=== PATIENT | female | born 1990 | race Caucasian/White ===

== ENCOUNTER 2025-01-15 18:04 | Emergency (ER) | payer MEDICAID, SELFPAY ==
--- NOTE | 2025-01-15 19:42 | PD.EDSKIN ---
ED Skin Abcess FB-RME/HPI General Chief complaint: Wound/Laceration Stated complaint: Left arm laceration X 5 days Time Seen by Provider: 01/15/25 19:49 Arrival date/time: 01/15/25 18:04 RME / HPI RME / HPI narrative: See [facility] for Dr. Ruvalcaba's HPI Documentation. Related Data Previous Rx's ?Medication ?Instructions ?Recorded amoxicillin 875 mg-potassium 1 tab PO BID #20 tabs 01/15/25 clavulanate 125 mg tablet Allergies Allergy/AdvReac Type Severity Reaction Status Date / Time clindamycin Allergy Verified 01/15/25 18:10 Review of Systems Review of Systems Systems Reviewed: All systems reviewed, normal except as documented Past Medical History Social History SMOKING STATUS: Current every day smoker ED Exam Narrative Physical exam: See [facility] for Dr. Ruvalcaba's Physical Exam Documentation. Course Quality Measures none Orders Category Date Time Status Amoxicillin/Pot Clav 875 [Augmentin 875] Med 01/15/25 19:55 Discontinued 1 tab PO X1 ONE Ibuprofen Tab [Motrin Tab] Med 01/15/25 19:55 Discontinued 800 mg PO X1 ONE Lidocaine 1% Vial 20 ml [Xylocaine 1% 20 ML] Med 01/15/25 19:55 Discontinued 20 ml INFL X1 ONE Vital Signs Vital signs: Vital Signs Temperature 98.3 F 01/15/25 19:46 Pulse Rate 59 L 01/15/25 19:46 Respiratory Rate 16 01/15/25 19:46 Blood Pressure 132/87 H 01/15/25 19:46 Pulse Oximetry (%) 99 01/15/25 19:46 Oxygen Delivery Method Room Air 01/15/25 19:46 PROCEDURES: Abscess I/D Site: upper extremity (forearm) Side (if applicable): left Sedation/analgesia: none Local Anesthetic: lidocaine 1% Amount of anesthesia used (mL): 3 Technique: incised with #11 blade Amount of fluid expressed (mL): 5 Irrigation: Yes Packing used?: none Skin / Abscess / Foreign Body [facility] Narrative MDM Narrative:: This section includes all my notes and documentations, including HPI, PE, and ED course. Chente Ruvalcaba MD HPI: 34 y/o female presents with worsening left forearm mass with redness and swelling and pain x 5 days. No fever or chills. No other complaints. ROS: All negative except as documented in HPI. Physical Exam: General: Alert and oriented. No acute distress when remaining still. Eyes: Conjunctivae and lids clear. ENT: No nasal congestion. Neck: Supple. Lungs: No respiratory distress. Skin: Warm and dry. In the distal volar aspect of the left forearm, there is chestnut sized erythematous fluctuant mass with calor and tenderness. Neuro: Alert and oriented X 3. At this point, diagnoses include: Abscess Treatment here included: Augmentin 875 Motrin 800 mg Incision & Drainage (see procedure note) She felt much better. Recommended outpatient treatment. Based on my best medical judgment, made decision no further evaluation or treatment indicated at this time. Patient understands and agrees to the discharge instructions customized and printed, see below. Discharge Instructions from Dr. Ruvalcaba: ?Your abscess was successfully incised and drained pus. ?Take Augmentin to help kill the germs causing your infection. ?Three times per day, soak in warm water with antibacterial soap and Epsom salt. Try to gently squeeze out more pus before the wound closes. ?After drying as much as possible, apply new dressing. ?See your private doctor of your choice on 01/17/2025 for recheck and further care, to make sure you are healing properly without any complications. There is no one antibiotic that can kill all the germs out there. So the follow-up is extremely important. ?-Seek immediate medical care with fever > 100.4, spreading redness, or with any concerns. Chente Ruvalcaba MD Patient data External records reviewed:: [facility] previous records (Reviewed prior ED records from 06/10/22. Patient was seen for Abdominal pain.) Clinical information provided by:: patient Social determinants that could affect healthcare access:: none Patient has the following chronic illnesses:: None reported How is presenting disease/condition affected by chronic disease/condition?: no chronic disease Evaluation data The following diagnostics were reviewed and interpreted by me:: other (specify) (N/A) Lab and/or radiology exams considered but not ordered:: None Interpretation Summary: None Medications / Prescriptions Medications or Prescriptions considered but not ordered:: None Medication administrations:: Medication Administration History Discontinued Medications Amoxicillin/Clavulanate Potassium (Amoxicillin/Pot Clav 875 Tablet) 1 tab PO X1 ONE Stop: 01/15/25 19:56 Last Admin: 01/15/25 20:08 Dose: 1 tab Documented By: GAB Ibuprofen (Ibuprofen Tab 400 Mg Tablet) 800 mg PO X1 ONE Stop: 01/15/25 19:56 Last Admin: 01/15/25 20:07 Dose: 800 mg Documented By: GAB Lidocaine HCl (Lidocaine Hcl 1% 20 Ml Vial) 20 ml INFL X1 ONE Stop: 01/15/25 19:56 Last Admin: 01/15/25 21:13 Dose: 20 ml Documented By: GAB Comments: ADMINISTERED BY Treatment here included: Augmentin 875 Motrin 800 mg Incision & Drainage (see procedure note) Consultations Consultation(s) initiated? (list below): No Diagnosis Skin/Abscess Differential Diagnosis: abscess of skin or subcutaneous tissue, viral exanthem, cellulitis and contact dermatitis Most likely diagnosis given after review of the tests above:: Abscess Admission Indicated Admission indicated?: not indicated Explain why admission is indicated or not indicated:: With significant improvement and no condition needing emergent intervention, there was no indication for admission. Admission Request Was there a request for admission?: No Disposition Plan Disposition Plan: Discharge Discharge Attestation Discharge Attestation: The patient and all family members were given an opportunity to ask questions and understood the discharge instructions. Discharge instructions specifically effects, indications for sooner follow up or return to the emergency department, and the expected course of current diagnosis. Patient condition: Stable Discharge Plan Plan Patient Disposition: HOME (Self Care) Prescriptions/Referrals Prescriptions/Med Rec: New amoxicillin-pot clavulanate 875-125 mg tablet 1 tab PO BID Qty: 20 0RF Referrals: Kimberly Mcgovern PA-C [Primary Care Provider] - In 1 week Problem List Clinical Impression: Abscess Patient/Caregiver Discharge Instructions Discharge Activity: activity as tolerated Education Materials: ED Abscess, Incision And Drainage Additional Instructions: Discharge Instructions from Dr. Ruvalcaba: ?Your abscess was successfully incised and drained pus. ?Take Augmentin to help kill the germs causing your infection. ?Three times per day, soak in warm water with antibacterial soap and Epsom salt. Try to gently squeeze out more pus before the wound closes. ?After drying as much as possible, apply new dressing. ?See your private doctor of your choice on 01/17/2025 for recheck and further care, to make sure you are healing properly without any complications. There is no one antibiotic that can kill all the germs out there. So the follow-up is extremely important. ?-Seek immediate medical care with fever > 100.4, spreading redness, or with any concerns. Print Language: Tajik Stand Alone Forms: Merissa Award Info., Patient Portal Info Letter
[2025-01-15 19:46] VITALS: BP 132/87; PULSE 59; RESP 16; TEMP 36.8; O2SAT 99
[2025-01-15] MEDS: IBUPROFEN TAB 400 MG TABLET 800 MG PO (20:07)
[2025-01-15] MEDS: AMOXICILLIN/POT CLAV 875 TABLET 1 TAB PO (20:08)
[2025-01-15] MEDS: LIDOCAINE HCL 1% 20 ML VIAL INFL (21:13)
== END 2025-01-15 21:58 | disposition home or self-care (01) ==
PROVIDERS: Emergency Provider Emergency Medicine; PCP Physician Assistant
DX: L02.414 Cutaneous abscess of left upper limb (principal)
CPT/HCPCS: 10060; 99281; J3490; A9270